=== PATIENT | male | born 1960 | race Native Hawaiian/Other Pacific Islander ===

== ENCOUNTER 2020-03-25 05:47 | Inpatient (IN) | payer BC, OTHER ==
[~2020-03-25] VITALS: Ht 182.9 cm; Wt 113.4 kg
[2020-03-25] MEDS ORDERED: InsuLIN REG 1unit/0.01ml Soln (100units/ml) ONE (05:55)
[2020-03-25] MEDS ORDERED: HEPARIN DRIP/D5W 100UNITS/ML 250 ML IV SCH (06:00)
[2020-03-25] MEDS ORDERED: ATORVASTATIN 20 MG TAB PO ONE (06:00)
[2020-03-25] MEDS ORDERED: ASPirin 81 mg TAB PO ONE (06:00)
[2020-03-25] MEDS ORDERED: InsuLIN REG 1unit/0.01ml Soln (100units/ml) IV ONE (06:00)
[2020-03-25] MEDS ORDERED: HEPARIN SODIUM (PORCINE) 5000 UNITS/ML 1ML VIAL IV ONE ×2 (06:00→06:15)
[2020-03-25 06:24] LABS: Hemoglobin 7.5 g/dL (13.5-17.5)
[2020-03-25 06:27] LABS: Hematocrit 22.1 % (41.0-53.0); Mean Corpuscular Hemoglobin 31.1 pg (28.0-32.0); Mean Corpuscular Hgb Conc. 34.1 g/dL (32.0-36.0); Mean Corpuscular Volume 91.3 fL (80.0-100.0); Platelet Count (auto) 421 10^3/uL (140-450); Red Blood Cells 2.42 10^6/uL (4.5-5.90); Red Cell Distribution Width 12.5 % (11.8-14.3); White Blood Cell 12.2 10^3/uL (4.4-10.8)
[2020-03-25 06:35] LABS: Basophils % (manual) 0 (0.0-2.0); Blast Cells 0; Eosinophils % (manual) 0 (0-7); Myelocytes % 0; Promyelocytes % 0; Reactive Lymphocytes 0
[2020-03-25 06:39] LABS: INR 1.12 (0.9-1.15); Partial Thromboplastin Time 25.3 sec (23.0-31.2)
[2020-03-25 06:57] LABS: Albumin 2.3 g/dL (3.4-5.0); Calcium 8.4 mg/dL (8.5-10.1); Potassium 5.4 mmol/L (3.5-5.1)
[2020-03-25] MEDS ORDERED: MORPHINE SULF INJ 2 MG/ML SYRINGE 1ML IV PRN (07:00)
[2020-03-25] MEDS ORDERED: ONDANSETRON HCL 4 MG/2 ML VIAL IV PRN (07:00)
[2020-03-25] MEDS ORDERED: NITROGLYCERIN 0.4 MG SL TAB SL PRN (07:00)
[2020-03-25 07:06] LABS: BUN/Creatinine Ratio 31.1; Bilirubin, Total 0.7 mg/dL (0.2-1.0); Total Protein 6.5 g/dL (6.4-8.2)
[2020-03-25] MEDS ORDERED: SODIUM ZIRCONIUM CYCL 10 GM PAK PO ONE (07:15)
[2020-03-25] MEDS ORDERED: DEXTROSE (50%) 50ML SYRG IV PRN (07:15)
[2020-03-25 07:38] LABS: Band Neutrophils % (manual) 1; Lymphocytes % (manual) 13 (10.0-50.0); Metamyelocytes % 1; Monocytes % (manual) 4 (0-12)
[2020-03-25 07:55] LABS: Lactic Acid w/Reflex 3.4 mmol/L (0.4-2.0)
[2020-03-25 08:54] LABS: Urine Amorphous Crystal FEW /hpf (None Seen); Urine Bacteria NONE SEEN /hpf (None Seen); Urine Blood TRACE /uL (Negative); Urine WBC 1 /hpf (0 - 3)
[2020-03-25 09:30] VITALS: BP 111/89
[2020-03-25] MEDS ORDERED: ASPirin 81 mg TAB PO SCH (10:00)
[2020-03-25] MEDS ORDERED: InsuLIN REG 1unit/0.01ml Soln (100units/ml) SC SCH (12:00)
[2020-03-25] MEDS ORDERED: ACCU-CHEK COMFORT CURVE STRIP VI SCH (12:00)
[2020-03-25] MEDS ORDERED: ATORVASTATIN 20 MG TAB PO SCH (22:00)
== END 2020-03-25 10:07 | disposition left against medical advice (07) | DRG 177 ==
LOC: ER 05:47 → EDBD 05:47 → TELE 05:48
PROVIDERS: ADMIT Nurse Practitioner; ATTEND Internal Medicine
DX: U07.1 COVID-19 (principal); I21.3 ST elevation (STEMI) myocardial infarction of unspecified site; J12.89 Other viral pneumonia; G93.41 Metabolic encephalopathy; J45.909 Unspecified asthma, uncomplicated; I12.9 Hypertensive chronic kidney disease with stage 1 through stage 4 chronic kidney disease, or unspecified chronic kidney disease; E11.22 Type 2 diabetes mellitus with diabetic chronic kidney disease; E11.65 Type 2 diabetes mellitus with hyperglycemia; E66.9 Obesity, unspecified; E78.5 Hyperlipidemia, unspecified; E87.5 Hyperkalemia; F17.200 Nicotine dependence, unspecified, uncomplicated; N18.30 Chronic kidney disease, stage 3 unspecified; Z79.4 Long term (current) use of insulin
CPT/HCPCS: 36415; 36600; 70450; 71045; 80053; 81001; 82010; 82728; 82805; 82962; 83605; 83880; 84484; 85007; 85027; 85610; 85730; 86141; 86850; 86900; 86901; 93005; 96374; 96375; G0378; J1815

== ENCOUNTER 2020-04-02 11:55 | Inpatient (IN) | payer BC ==
[~2020-04-02] VITALS: Ht 182.9 cm; Wt 109.3 kg
[2020-04-02 12:45] LABS: Basophils # (auto) 0 10 ^3/uL (0-0.2); Eosinophils % (auto) 0.4 % (0.0-7.0); Lymphocytes # (auto) 0.7 10 ^3/uL (0.4-5.4); Neutrophils # (auto) 10.3 10 ^3/uL (1.6-8.6)
[2020-04-02 12:47] LABS: Basophils % (auto) 0.4 % (0.0-2.0); Eosinophils # (auto) 0.1 10 ^3/uL (0-0.8); Hematocrit 21.6 % (41.0-53.0); Lymphocytes % (auto) 5.5 % (10.0-50.0); Mean Corpuscular Hgb Conc. 32.2 g/dL (32.0-36.0); Mean Corpuscular Volume 96.3 fL (80.0-100.0); Monocytes # (auto) 0.9 10 ^3/uL (0-1.3); Monocytes % (auto) 7.6 % (0.0-12.0); Neutrophils % (auto) 86.1 % (37.0-80.0); Nucleated Red Blood Cells % 0.3 %; Platelet Count (auto) 304 10^3/uL (140-450); Red Blood Cells 2.24 10^6/uL (4.5-5.90); Red Cell Distribution Width 17.7 % (11.8-14.3)
[2020-04-02 13:09] LABS: Albumin 2.2 g/dL (3.4-5.0); Calcium 8.2 mg/dL (8.5-10.1); Magnesium 2.7 mg/dL (1.6-2.6); Potassium 4.5 mmol/L (3.5-5.1)
[2020-04-02 13:15] LABS: BUN/Creatinine Ratio 22.1; Total Protein 6.8 g/dL (6.4-8.2)
[2020-04-02] MEDS ORDERED: INSULIN LANTUS (GLARGINE) 1 /0.01ml (100units/ml) SC ONE (13:15)
[2020-04-02] MEDS ORDERED: InsuLIN R (HUMAN) 100 UNITS in SODIUM CHL 0.9% 99 ML IV SCH (13:15)
[2020-04-02] MEDS ORDERED: cefTRIAXone 1GM/50ML D5W 50 ML IV ONE (13:15)
[2020-04-02] MEDS ORDERED: AZITHROMYCIN 500MG/ 250ML 250 ML IV ONE (13:15)
[2020-04-02] MEDS ORDERED: DEXTROSE (50%) 50ML SYRG IV PRN ×2 (13:15→14:15)
[2020-04-02] MEDS ORDERED: ACCU-CHEK COMFORT CURVE STRIP VI SCH (13:30)
[2020-04-02] MEDS ORDERED: ALBUTEROL SULF HFA 90MCG INH 200DOSE IN SCH (14:00)
[2020-04-02] MEDS ORDERED: NITROGLYCERIN 0.4 MG SL TAB SL PRN (14:00)
[2020-04-02] MEDS ORDERED: ONDANSETRON HCL 4 MG/2 ML VIAL IV PRN (14:00)
[2020-04-02] MEDS ORDERED: MORPHINE SULF INJ 2 MG/ML SYRINGE 1ML IV PRN ×2 (14:00)
[2020-04-02] MEDS ORDERED: HYDROcodone-ACET 5/325MG TAB PO PRN (14:00)
[2020-04-02] MEDS ORDERED: ACETAMINOPHEN 500 MG TAB PO PRN ×2 (14:00)
[2020-04-02 14:27] LABS: Phosphorus 4.2 mg/dL (2.5-4.90); Uric Acid 7.8 mg/dL (3.5-7.2)
[2020-04-02] MEDS: DOXYCYCLINE 100MG/250ML 250 ML IV SCH (14:40)
[2020-04-02 15:55] LABS: % Iron Saturation 5.6 % (20-55)
[2020-04-02] MEDS ORDERED: GLIP10TA9 PO (16:43)
[2020-04-02] MEDS ORDERED: METF-371 PO (16:43)
[2020-04-02] MEDS ORDERED: SIMV-8 PO (16:43)
[2020-04-02] MEDS ORDERED: ALBUAER3 IN (16:43)
[2020-04-02] MEDS ORDERED: ASPI1CHW5 PO (16:43)
[2020-04-02] MEDS ORDERED: LISI-646 PO (16:43)
[2020-04-02] MEDS ORDERED: INSUINJ37 SC (16:43)
[2020-04-02 17:58] VITALS: BP 92/57
[2020-04-02] MEDS: ACCU-CHEK COMFORT CURVE STRIP VI SCH ×2 (18:00→23:40)
[2020-04-02] MEDS: InsuLIN REG 1unit/0.01ml Soln (100units/ml) SC SCH ×2 (18:05→22:00)
[2020-04-02 18:15] VITALS: BP 101/59
[2020-04-02 18:51] VITALS: BP 88/63
[2020-04-02 21:15] VITALS: BP 104/64
[2020-04-02] MEDS: BUDESONIDE (INHALATION) 0.5 MG/2 ML NEB NEB SCH (23:04)
[2020-04-02] MEDS: ENOXAPARIN SOD 100 MG/1 ML SYRINGE SC SCH (23:40)
[2020-04-03] VITALS (7 sets, daily range): BP systolic 103–117; BP diastolic 58–69
[2020-04-03] MEDS: DOXYCYCLINE 100MG/250ML 250 ML IV SCH ×2 (02:28→15:30)
[2020-04-03 03:12] LABS: Calcium 7.9 mg/dL (8.5-10.1); Potassium 4.8 mmol/L (3.5-5.1)
[2020-04-03] MEDS: ACCU-CHEK COMFORT CURVE STRIP VI SCH ×4 (05:32→20:49)
[2020-04-03] MEDS: InsuLIN REG 1unit/0.01ml Soln (100units/ml) SC SCH ×4 (05:34→21:06)
[2020-04-03 07:10] LABS: Basophils # (auto) 0 10 ^3/uL (0-0.2); Eosinophils # (auto) 0.1 10 ^3/uL (0-0.8); Hemoglobin 7.5 g/dL (13.5-17.5); Lymphocytes # (auto) 0.6 10 ^3/uL (0.4-5.4); Neutrophils # (auto) 7.9 10 ^3/uL (1.6-8.6); White Blood Cell 9.7 10^3/uL (4.4-10.8)
[2020-04-03] MEDS: BUDESONIDE (INHALATION) 0.5 MG/2 ML NEB NEB SCH ×2 (07:15→18:35)
[2020-04-03] MEDS: ALBUTEROL SULF 2.5 MG/0.5ML(0.5%) NEB SOLN NEB SCH ×3 (07:15→18:35)
[2020-04-03 07:16] LABS: Basophils % (auto) 0.4 % (0.0-2.0); Eosinophils % (auto) 1.3 % (0.0-7.0); Hematocrit 22.1 % (41.0-53.0); Lymphocytes % (auto) 6.1 % (10.0-50.0); Mean Corpuscular Hemoglobin 32.3 pg (28.0-32.0); Mean Corpuscular Hgb Conc. 33.9 g/dL (32.0-36.0); Mean Corpuscular Volume 95.4 fL (80.0-100.0); Monocytes % (auto) 10.6 % (0.0-12.0); Neutrophils % (auto) 81.6 % (37.0-80.0); Nucleated Red Blood Cells % 0.3 %; Platelet Count (auto) 270 10^3/uL (140-450); Red Blood Cells 2.32 10^6/uL (4.5-5.90); Red Cell Distribution Width 15.9 % (11.8-14.3)
[2020-04-03 07:25] LABS: INR 1.08 (0.9-1.15); Partial Thromboplastin Time 45.3 sec (23.0-31.2)
[2020-04-03 07:28] LABS: Albumin 2.1 g/dL (3.4-5.0); Calcium 7.9 mg/dL (8.5-10.1); Potassium 4.7 mmol/L (3.5-5.1)
[2020-04-03 07:32] LABS: BUN/Creatinine Ratio 22.7; Bilirubin, Total 1.1 mg/dL (0.2-1.0); Total Protein 6.4 g/dL (6.4-8.2)
[2020-04-03] MEDS: ASCORBIC ACID 1,000 MG TAB PO SCH (08:30)
[2020-04-03] MEDS: CHOLECALCIFEROL (VITD3) 2,000 UNIT CAP PO SCH (08:31)
[2020-04-03] MEDS: ZINC SULFATE 220mg CAP or TAB PO SCH (08:31)
[2020-04-03] MEDS: DexAMETHasone SOD PHOS 10MG/1ML VIAL INJ IV SCH (08:32)
[2020-04-03] MEDS: ENOXAPARIN SOD 100 MG/1 ML SYRINGE SC SCH ×2 (09:39→20:46)
[2020-04-03] MEDS: FAMOTIDINE 20 MG TAB PO SCH (09:39)
[2020-04-03] MEDS: ASPirin 81 mg TAB PO SCH (09:40)
[2020-04-03] MEDS ORDERED: INSULIN LANTUS (GLARGINE) 1 /0.01ml (100units/ml) SC SCH (10:00)
--- NOTE | 2020-04-03 11:21 | NUR ---
Received call from MD Freedman Per repeat In-House COVID test required d/t possible false-negative, patient is to be moved to isolation with COVID-[address] until R/O. Director, Meri villagran aware. Will proceed to carry out orders.
--- NOTE | 2020-04-03 12:00 | NUR ---
Respiratory note: UNABLE TO GIVE PT MEDNEB TX DUE TO PT BEING AT PROCEDURE. RN AWARE. WILL CONTINUE TO MONITOR PT UPON RETURN.
--- NOTE | 2020-04-03 12:01 | NUR ---
Tel order obtained from Dr Cummins for GINGER downgrade
--- NOTE | 2020-04-03 13:05 | NUR ---
pt's daughter called by phone updated on pt's status
--- NOTE | 2020-04-03 13:11 | NUR ---
phone report given to primary GINGER RN
[2020-04-03] MEDS ORDERED: DOPamine 1600MCG/ML D5W 250 ML IV SCH (13:45)
[2020-04-03] MEDS ORDERED: DOPamine 1600MCG/ML D5W 250 ML IV ONE (13:57)
--- NOTE | 2020-04-03 14:45 | NUR ---
Admit to GING[facility] NONU,[facility] admitted to GINGER via gurney on conservation engineer, and portable 02 from cathlab. Patient transfered to bed, connected to unit monitoring and oxygen, and weighed by bedscale. Patient oriented to GUILHERME HANKINS, primary RN, unit, room, bed, and unit policies regarding patient care and visiting hours. All questions and concerns addressed, patient verbalized understanding. Vitals as follows: 106, 118/63, 18, 100% on 2L NC. MRSA swab to be sent to lab.
[2020-04-03] MEDS ORDERED: FUROSEMIDE 20 MG/2 ML VIAL IV ONE (16:15)
--- NOTE | 2020-04-03 16:59 | NUR ---
COVID/ Second PCR negative. Placed paged to Dr Freedman to inform and to see if we can take patient off isolation.
[2020-04-03] MEDS: PIPERACILLIN-TAZOB 3.375GM 100 ML IV SCH ×2 (18:35→23:28)
--- NOTE | 2020-04-03 18:58 | NUR ---
1800 SCHEDULED ALBUTEROL WAS HELD DUE TO HR OF127. NO RESPIRATORY DISTRESS NOTED. Addendum: 04/03/20 at 1859 by ASHLEY GAMBINO RT Amended: Links added.
--- NOTE | 2020-04-03 19:26 | NUR ---
END OF SHIFT Report given to NOC RNMonica. Endorsed care of patient.
[2020-04-03] MEDS: CARVEDILOL 3.125 MG TAB PO SCH (20:46)
[2020-04-03] MEDS: ATORVASTATIN 20 MG TAB PO SCH (20:46)
[2020-04-04] VITALS: BP 94/55
[2020-04-04] MEDS: ALBUTEROL SULF 2.5 MG/0.5ML(0.5%) NEB SOLN NEB SCH ×3 (00:43→13:15)
[2020-04-04 03:46] LABS: Basophils # (auto) 0 10 ^3/uL (0-0.2); Basophils % (auto) 0.1 % (0.0-2.0); Eosinophils # (auto) 0 10 ^3/uL (0-0.8); Eosinophils % (auto) 0.1 % (0.0-7.0); Hematocrit 22.9 % (41.0-53.0); Hemoglobin 7.4 g/dL (13.5-17.5); Lymphocytes # (auto) 0.3 10 ^3/uL (0.4-5.4); Lymphocytes % (auto) 3.7 % (10.0-50.0); Mean Corpuscular Hemoglobin 33.5 pg (28.0-32.0); Mean Corpuscular Hgb Conc. 32.4 g/dL (32.0-36.0); Mean Corpuscular Volume 103.5 fL (80.0-100.0); Monocytes # (auto) 0.2 10 ^3/uL (0-1.3); Monocytes % (auto) 2.9 % (0.0-12.0); Neutrophils # (auto) 6.7 10 ^3/uL (1.6-8.6); Neutrophils % (auto) 93.2 % (37.0-80.0); Nucleated Red Blood Cells % 0.1 %; Platelet Count (auto) 308 10^3/uL (140-450); Red Blood Cells 2.21 10^6/uL (4.5-5.90); Red Cell Distribution Width 16.7 % (11.8-14.3); White Blood Cell 7.2 10^3/uL (4.4-10.8)
[2020-04-04 03:59] VITALS: BP 104/59
[2020-04-04 04:05] LABS: Potassium 5.1 mmol/L (3.5-5.1)
[2020-04-04 04:24] LABS: Albumin 2.1 g/dL (3.4-5.0); BUN/Creatinine Ratio 21.7; Bilirubin, Total 1.1 mg/dL (0.2-1.0); CRP High Sensitivity 11.3 mg/dL (< 0.3); Calcium 8.1 mg/dL (8.5-10.1); Magnesium 2.1 mg/dL (1.6-2.6); Total Protein 6.7 g/dL (6.4-8.2)
[2020-04-04] MEDS: PIPERACILLIN-TAZOB 3.375GM 100 ML IV SCH ×3 (05:03→17:45)
[2020-04-04] MEDS: ACCU-CHEK COMFORT CURVE STRIP VI SCH ×3 (05:39→21:43)
[2020-04-04] MEDS: InsuLIN REG 1unit/0.01ml Soln (100units/ml) SC SCH ×3 (05:54→22:22)
[2020-04-04] MEDS: BUDESONIDE (INHALATION) 0.5 MG/2 ML NEB NEB SCH (06:53)
[2020-04-04 08:30] VITALS: BP 97/56
--- NOTE | 2020-04-04 08:30 | NUR ---
VENT. CHANGES MADE, INCREASED RESP. RATE TO 22, AND INCREASED VT TO 350. PER DR. BORJAS'S T.O.
--- NOTE | 2020-04-04 08:42 | NUR ---
PAGED DR DELGADO NEED TO UPDATE ON MOST RECENT IN HOUSE COVID RESULTS AND DISCUSS ISOLATION STATUS. STAYING MACHINE OPERATOR IS PENDING ISOLATION STATUS
--- NOTE | 2020-04-04 08:49 | NUR ---
PATIENTS DAUGHTER CALLED FOR UPDATE PROVIDED PASSWORD. UPDATED ON CURRENT PLAN OF CARE AND ADDRESSED HER CONCERNS
[2020-04-04] MEDS: ASPirin 81 mg TAB PO SCH (09:57)
[2020-04-04] MEDS: CARVEDILOL 3.125 MG TAB PO SCH (09:57)
[2020-04-04] MEDS: FAMOTIDINE 20 MG TAB PO SCH (09:58)
[2020-04-04] MEDS: DexAMETHasone SOD PHOS 10MG/1ML VIAL INJ IV SCH (10:00)
[2020-04-04] MEDS: CHOLECALCIFEROL (VITD3) 2,000 UNIT CAP PO SCH (10:00)
[2020-04-04] MEDS: ZINC SULFATE 220mg CAP or TAB PO SCH (10:00)
[2020-04-04] MEDS: ASCORBIC ACID 1,000 MG TAB PO SCH (10:00)
[2020-04-04] MEDS: ENOXAPARIN SOD 100 MG/1 ML SYRINGE SC SCH ×2 (10:00→22:21)
--- NOTE | 2020-04-04 10:39 | NUR ---
DR DELGADO AT BEDSIDE DISCUSSED PATIENTS STATUS AND COVID TESTING RESULTS. WANTS A 3RD IN-HOUSE TEST SENT
--- NOTE | 2020-04-04 11:20 | NUR ---
SPOKE WITH ALIYAH GORDON, UPDATED ON CURRENT STATUS AND DR RODGERS RECOMMENDATIONS ANGIOGRAM POSTPONED UNTIL TOMORROW (04/05/20)WITH DR GUERRERO, PENDING 3RD IN-HOUSE TEST
--- NOTE | 2020-04-04 11:50 | NUR ---
DR DANIELLE AT BEDSIDE DISCUSSED PLAN OF CARE WITH PATIENT
[2020-04-04 12:15] VITALS: BP 108/68
[2020-04-04] MEDS ORDERED: DEXTROSE (50%) 50ML SYRG IV PRN (12:45)
[2020-04-04] MEDS ORDERED: FUROSEMIDE 20 MG/2 ML VIAL IV ONE (12:45)
--- NOTE | 2020-04-04 13:09 | NUR ---
IN HOUSE COVID SWAB WALKED TO LAB BY SPD MANAGER
--- NOTE | 2020-04-04 15:12 | NUR ---
NEW BED ASSIGNMENT GIVEN 208, REPORT GIVEN TO DIAMOND PATIENT TO BE TRANSPORTED VIA WHEELCHAIR UPON RECEIVING TELEMETRY BOX
--- NOTE | 2020-04-04 16:00 | NUR ---
Received a patient from GINGER, patient awake, alert and oriented x 4 and verbally responsive. No respiratory distress noted. Skin is warm and dry to touch. Denied any pain at this time. Placed a call light within reach, will continue to monitor.
--- NOTE | 2020-04-04 16:02 | NUR ---
PATIENT TRANSPORTED TO NEW ROOM VIA WHEELCHAIR, CONNECTED TO PORTABLE TELE BOX. TRANSPORTED WITH ALL BELONGINGS. PATIENT TRANSFER TO NEW BED WITH MINIMAL ASSIST. RECEIVING RN AT BEDSIDE. VITALS STABLE AT TIME OF TRANSPORT
--- NOTE | 2020-04-04 16:15 | NUR ---
Received a call from Microbiology regarding patient has covid positive, MELISSA Marino and antoine Panda notified.
--- NOTE | 2020-04-04 16:35 | NUR ---
RECEIVED CALL FROM PATIENTS AND DAUGHTER PROVIDED PASSWORD. FAMILY IS UPSET REGARDING PATIENTS CARE. STATES THEY FEEL THEY ARE "GETTING RUN AROUND" REGARDING PATIENT GETTING ANGIOGRAM. THEY QUESTION HOW PATIENT COULD BE COVID TEST NEGATIVE MULTIPLE TIMES AND NOW BE INFORMED PATIENT IS TESTING POSITIVE. THEY WOULD LIKE TO SPEAK TO MD CARING FOR PATIENT. BEST PHONE NUMBER TO REACH THEM [phone], PAGED DR DELGADO TO NOTIFY
--- NOTE | 2020-04-04 16:41 | NUR ---
Report given to Kit CROWE.
[2020-04-04 16:49] VITALS: BP 81/54
--- NOTE | 2020-04-04 19:03 | NUR ---
nebulized medication put on hold at this time due to pt's positive covid test.
--- NOTE | 2020-04-04 19:30 | NUR ---
Opening Shift Note Assumed care of patient, awake and alert. No S/S of distress/SOB or pain. Instructed on POC and to call for assist PRN, will continue to monitor for changes Q1hr and PRN.
[2020-04-04 22:00] VITALS: BP 91/62
[2020-04-04] MEDS: ATORVASTATIN 20 MG TAB PO SCH (22:20)
[2020-04-04] MEDS: INSULIN LANTUS (GLARGINE) 1 /0.01ml (100units/ml) SC SCH (22:21)
[2020-04-05] VITALS (15 sets, daily range): BP systolic 85–107; BP diastolic 49–68
[2020-04-05] MEDS: PIPERACILLIN-TAZOB 3.375GM 100 ML IV SCH ×2 (00:40→05:51)
[2020-04-05] MEDS: CARVEDILOL 3.125 MG TAB PO SCH ×2 (00:40→08:53)
--- NOTE | 2020-04-05 05:18 | NUR ---
Pt BP was 85/52 in the AM. Elevated lower extremities and will recheck BP shortly. Pt is asymptomatic. HR is 92 and O2 sat at 95%.
--- NOTE | 2020-04-05 05:52 | NUR ---
Upon recheck BP was 90/52. Will continue to monitor.
[2020-04-05] MEDS: ACCU-CHEK COMFORT CURVE STRIP VI SCH ×4 (06:14→22:28)
[2020-04-05] MEDS: InsuLIN REG 1unit/0.01ml Soln (100units/ml) SC SCH ×4 (06:22→22:33)
[2020-04-05 06:33] LABS: Eosinophils # (auto) 0.1 10 ^3/uL (0-0.8); Lymphocytes # (auto) 0.9 10 ^3/uL (0.4-5.4)
[2020-04-05 06:35] LABS: Basophils # (auto) 0.1 10 ^3/uL (0-0.2); Basophils % (auto) 0.6 % (0.0-2.0); Eosinophils % (auto) 1.2 % (0.0-7.0); Hematocrit 18.8 % (41.0-53.0); Lymphocytes % (auto) 10.4 % (10.0-50.0); Mean Corpuscular Hemoglobin 32.1 pg (28.0-32.0); Mean Corpuscular Hgb Conc. 32.8 g/dL (32.0-36.0); Mean Corpuscular Volume 97.7 fL (80.0-100.0); Monocytes % (auto) 12.5 % (0.0-12.0); Neutrophils # (auto) 6.2 10 ^3/uL (1.6-8.6); Neutrophils % (auto) 75.3 % (37.0-80.0); Nucleated Red Blood Cells % 0.3 %; Platelet Count (auto) 358 10^3/uL (140-450); Red Blood Cells 1.93 10^6/uL (4.5-5.90); Red Cell Distribution Width 15.6 % (11.8-14.3); White Blood Cell 8.3 10^3/uL (4.4-10.8)
[2020-04-05 06:46] LABS: Hemoglobin 6.2 g/dL (13.5-17.5)
--- NOTE | 2020-04-05 06:47 | NUR ---
Received call from lab for critical Hgb 6.2. Will page hospitalist.
--- NOTE | 2020-04-05 06:49 | NUR ---
Received call back from hospitalist, Dru LY. Received new orders for 2 units PRBC's.
[2020-04-05 06:50] LABS: Albumin 1.9 g/dL (3.4-5.0); Calcium 7.8 mg/dL (8.5-10.1); Potassium 4.6 mmol/L (3.5-5.1)
[2020-04-05 06:58] LABS: BUN/Creatinine Ratio 34.5; Bilirubin, Total 0.7 mg/dL (0.2-1.0); Total Protein 6.3 g/dL (6.4-8.2)
[2020-04-05 08:50] LABS: INR 1.12 (0.9-1.15)
[2020-04-05] MEDS: ASCORBIC ACID 1,000 MG TAB PO SCH (08:51)
[2020-04-05] MEDS: ZINC SULFATE 220mg CAP or TAB PO SCH (08:51)
[2020-04-05] MEDS: ASPirin 81 mg TAB PO SCH (08:51)
[2020-04-05] MEDS: FAMOTIDINE 20 MG TAB PO SCH (08:52)
[2020-04-05] MEDS: DexAMETHasone SOD PHOS 10MG/1ML VIAL INJ IV SCH (08:52)
[2020-04-05] MEDS: CHOLECALCIFEROL (VITD3) 2,000 UNIT CAP PO SCH (08:52)
[2020-04-05] MEDS: ENOXAPARIN SOD 100 MG/1 ML SYRINGE SC SCH ×2 (08:53→22:28)
--- NOTE | 2020-04-05 09:28 | NUR ---
VITAL SIGNS BP 74/40 RECHECK 77/42 HR 122 TEMP 97.8 SPO2 95 WITH 5L/MIN NC PATIENT PUT INTO [place], OXYGEN ADMINISTERED, BP RECHECK 80/39. RN WILL CONTACT
--- NOTE | 2020-04-05 09:32 | NUR ---
CORPORATE RELATIONS DIRECTOR MADE AWARE OF SITUATION
--- NOTE | 2020-04-05 09:38 | NUR ---
WALDEMAR DELGADO RE: BP 74/41 WITH RECHECK 77/42 COLD EXTREMETIES, ALERT AND ORIENTED WITH GARBLED SPEECH. AWAITING CALL BACK
--- NOTE | 2020-04-05 09:40 | NUR ---
MD RETURNED PAGE PER MD PATIENT WILL CONTINUE PRBCS AND IF BLOOD PRESSURE CONTINUES TO TREND DOWN PATIENT WILL BE TRANSFERED TO GINGER
--- NOTE | 2020-04-05 10:58 | NUR ---
PAGED MD DELGADO RE: PATIENT FAMILY UPSET AND STATES "HE IS JUST GETTING MORE AND MORE SICK, I REALLY NEED TO TALK TO THE DOCTOR PHILLIP" MD AWARE AND STATES SHE "WILL CALL THEM LATER TODAY"
--- NOTE | 2020-04-05 13:15 | NUR ---
Nutrition Assessment Est energy needs 1889-2154 kcal (14-18 kcal/kg BW 108.4kg) est protein needs 81-97g (1-1.2g/kg IBW 81kg) WIll reassess prn. Addendum: 04/05/20 at [address] Amended: Links added.
[2020-04-05] MEDS ORDERED: FUROSEMIDE 20 MG/2 ML VIAL IV ONE (13:45)
--- NOTE | 2020-04-05 14:29 | NUR ---
CHARTING ERROR AT 0830 ON 04/04/2020, WRONG PT.
--- NOTE | 2020-04-05 15:00 | NUR ---
Midline Placement: Patient educated on need for midline placement. All risks and benefits explained and all questions and concerns addresses prior to procedure. 18g/10cm midline inserted via left brachial vein using Ultrasound. Sterile technique utilized. Blood return obtained from the single lumen and flushed easily with NS using proper technique. Midline secured with saline lock; biodisc and occlusive dressing applied. Primary RN Shelby notified. Midline lot # [id number]
[2020-04-05] MEDS ORDERED: LIDOCAINE 2%HCL (LOCAL ANESTH.) INJ 20ML MDV ONE (15:41)
[2020-04-05] MEDS ORDERED: IODIXANOL 320MG/ML 100ML BTL IV ONE (15:41)
[2020-04-05] MEDS ORDERED: ANGIOMAX 250 MG VIAL IV ONE (15:52)
[2020-04-05] MEDS ORDERED: HEPARIN SODIUM (PORCINE) 5000 UNITS/ML 1ML VIAL ONE (15:52)
[2020-04-05] MEDS ORDERED: fentaNYL CITRATE 100 MCG/2 ML VL ONE (15:53)
[2020-04-05] MEDS ORDERED: VERAPAMIL 2.5MG/ML INJ 2ML VIAL IV ONE (15:53)
[2020-04-05] MEDS ORDERED: MIDAZOLAM HCL 1MG/1ML-2 ML VIAL ONE (15:53)
[2020-04-05] MEDS ORDERED: SODIUM CHL 0.9% 50 ML ONE (15:53)
--- NOTE | 2020-04-05 15:55 | NUR ---
Assessment Patient is a 60-year-old male, who is alert and oriented. Patient cognitive abilities are intact. Patient states that his daughter (Sandra) assist him with all ADLs and he walks with a wheelchair. Patient stated that he lives with his daughter. Patient stated that he is unemployed and receives financial support from his daughter. Patient stated that he is receptive to receives Advance Directives forms. Discharge planning: SW will have a physical therapy evaluation for home PT. SW will continue to monitor for any other post discharge needs. Addendum: 04/05/20 at 1556 by KATHI QUEZADA Amended: Links added.
--- NOTE | 2020-04-05 16:42 | NUR ---
PT BROUGHT DOWN TO CUFF RUNNER BY CUFF RUNNER PERSONCATRINA
[2020-04-05] MEDS ORDERED: REMDESIVIR 200 MG in NS 210ml LOADING DOSE ADULT IV ONE (17:00)
--- NOTE | 2020-04-05 17:48 | NUR ---
PT BROUGHT BACK TO UNIT Report received from . ERIILA brought to bed 247B following LEFT Cardiac catheterization, on bus monitor and portable oxygen. Patient transfered to unit bed, connected to school bus monitor and oxygen. Catheterization site assessed for any bleeding, redness or swelling. VASC-BAND device in place. Pedal pulses on affected leg assessed for positive tissue perfusion. Patient instructed on need to notify staff immediately if any pain, burning or wetness to site, and any lower back pain. Patient educated on new cardiac medications. All questions and concerns addressed, patient verbalized understanding of all education and instruction. See notes for any further.
[2020-04-05] MEDS: PIPERACILLIN-TAZOB 2.25GM 50 ML IV SCH (18:00)
--- NOTE | 2020-04-05 18:22 | NUR ---
REMOVED 2ML FROM VASC BAND
[2020-04-05] MEDS ORDERED: SODIUM CHLORIDE 0.9% 1,000 ML IV ONE (18:45)
--- NOTE | 2020-04-05 18:52 | NUR ---
REMOVED 2ML FROM VASC BAND SITE ASSESSED. NO COMPLICATION AT THIS TIME.
--- NOTE | 2020-04-05 19:38 | NUR ---
CALL PLACED TO BLOOD BANK PER BLOOD BANK PATIENT HAS ALREADY RECEIVED 1 UNIT OF CONVALESCENT PLASMA. SECOND DOSE WILL NOW BE CANCELLED
--- NOTE | 2020-04-05 19:38 | NUR ---
CALL PLACED TO MD DELGADO RE: DOUBLE CONVALESCENT PLASMA ORDER PER "IF THE PATIENT ALREADY RECEIVED THE PLASMA THAN HE DOES NOT NEED A SECOND DOSE. JUST CALL BLOOD BANK TO VERIFY" Addendum: 04/05/20 at 1940 by ADI SELF RN RN INCORRECT TIME. CORRECT TIME 2678
[2020-04-05] MEDS: ATORVASTATIN 20 MG TAB PO SCH (22:29)
[2020-04-05] MEDS: INSULIN LANTUS (GLARGINE) 1 /0.01ml (100units/ml) SC SCH (22:33)
[2020-04-05] MEDS: BUDESONIDE (INHALATION) 180 MCG IH IN SCH (22:55)
[2020-04-05] MEDS: ALBUTEROL SULF HFA 90MCG INH 200DOSE IN SCH (22:55)
[2020-04-05 23:55] LABS: Hemoglobin 7.5 g/dL (13.5-17.5)
[2020-04-05 23:57] LABS: Hematocrit 22.9 % (41.0-53.0)
[2020-04-06] VITALS (7 sets, daily range): BP systolic 104–123; BP diastolic 65–77
--- NOTE | 2020-04-06 00:19 | NUR ---
REMDESIVIR POST V/S T97.6, HR97, O2 95%, RR20, BP102/65
[2020-04-06] MEDS: PIPERACILLIN-TAZOB 2.25GM 50 ML IV SCH ×5 (00:52→23:55)
--- NOTE | 2020-04-06 04:44 | NUR ---
Umana catheter insertion Patient educated on catheter and reason for insertion. All questions answered. Umana catheter 16 South African inserted with clean sterile technique. Patient tolerated well. Urine sample collected for UA. Sent to lab.
[2020-04-06 05:51] LABS: Urine Bacteria NONE SEEN /hpf (None Seen); Urine Blood Negative /uL (Negative); Urine WBC <1 /hpf (0 - 3)
[2020-04-06] MEDS: InsuLIN REG 1unit/0.01ml Soln (100units/ml) SC SCH ×4 (06:07→22:44)
[2020-04-06] MEDS: ACCU-CHEK COMFORT CURVE STRIP VI SCH ×4 (06:08→22:00)
[2020-04-06 06:50] LABS: Basophils # (auto) 0 10 ^3/uL (0-0.2); Eosinophils # (auto) 0 10 ^3/uL (0-0.8); Lymphocytes # (auto) 0.9 10 ^3/uL (0.4-5.4); Nucleated Red Blood Cells % 0.2 %
[2020-04-06 06:52] LABS: Basophils % (auto) 0.4 % (0.0-2.0); Eosinophils % (auto) 0.3 % (0.0-7.0); Hematocrit 20.1 % (41.0-53.0); Lymphocytes % (auto) 11.8 % (10.0-50.0); Mean Corpuscular Hemoglobin 30.1 pg (28.0-32.0); Mean Corpuscular Hgb Conc. 33.5 g/dL (32.0-36.0); Mean Corpuscular Volume 89.9 fL (80.0-100.0); Neutrophils % (auto) 74.5 % (37.0-80.0); Platelet Count (auto) 349 10^3/uL (140-450); Red Blood Cells 2.24 10^6/uL (4.5-5.90)
[2020-04-06 07:03] LABS: Hemoglobin 6.7 g/dL (13.5-17.5)
[2020-04-06 07:22] LABS: Calcium 8.2 mg/dL (8.5-10.1); Potassium 4.9 mmol/L (3.5-5.1)
[2020-04-06 07:26] LABS: Albumin 1.9 g/dL (3.4-5.0); BUN/Creatinine Ratio 36.8; Magnesium 2.3 mg/dL (1.6-2.6)
[2020-04-06] MEDS: ALBUTEROL SULF HFA 90MCG INH 200DOSE IN SCH ×3 (07:29→20:28)
[2020-04-06] MEDS: BUDESONIDE (INHALATION) 180 MCG IH IN SCH ×2 (07:29→20:25)
[2020-04-06 07:38] LABS: Bilirubin, Total 0.5 mg/dL (0.2-1.0); Total Protein 6.2 g/dL (6.4-8.2)
--- NOTE | 2020-04-06 09:08 | NUR ---
PATIENT AMBULATED TO BATHROOM WITH 2 PERSON ASSIST. PATIENT HAD LARGE BLACK TARRY BM. STOOL OCCULT SENT. PATIENT ASSISTED BACK TO BATHROOM. RESTING COMFORTABLY IN HIGH FOWLERS.
[2020-04-06] MEDS: ENOXAPARIN SOD 100 MG/1 ML SYRINGE SC SCH (10:00)
[2020-04-06] MEDS: ASPirin 81 mg TAB PO SCH (10:00)
--- NOTE | 2020-04-06 10:24 | NUR ---
WALDEMAR DANIELLE REGARDING BLACK TARRY STOOL.
[2020-04-06] MEDS: DexAMETHasone SOD PHOS 10MG/1ML VIAL INJ IV SCH (10:41)
[2020-04-06] MEDS: FAMOTIDINE 20 MG TAB PO SCH (10:41)
[2020-04-06] MEDS: ZINC SULFATE 220mg CAP or TAB PO SCH (10:41)
[2020-04-06] MEDS: ASCORBIC ACID 1,000 MG TAB PO SCH (10:42)
[2020-04-06] MEDS: CHOLECALCIFEROL (VITD3) 2,000 UNIT CAP PO SCH (10:42)
[2020-04-06] MEDS: SODIUM BICARBONATE 50ML VIAL 50 ML in SOD CHL 0.45% 1,000 ML IV SCH ×2 (10:45→22:23)
--- NOTE | 2020-04-06 11:09 | NUR ---
WALDEMAR THORPE REGARDING ORDERS FOR CRITICAL HGB. AWAITING CALL BACK.
--- NOTE | 2020-04-06 11:17 | NUR ---
SPOKE TO Pk THORPE REGARDING HGB. RECEIVED ORDER FOR ONE MORE UNIT OF PRBC.
--- NOTE | 2020-04-06 11:22 | NUR ---
Pk DANIELLE AT BEDSIDE. INFORMED OF PATIENT STATUS AND INFORMED OF BLACK TARRY STOOLS THIS AM.
[2020-04-06] MEDS: SUCRALFATE 1 GM/10 ML ORAL SUSP PO SCH ×3 (12:52→22:41)
[2020-04-06] MEDS: SODIUM FERR GLUC 62.5MG/5ML 125 MG in SODIUM CHL 0.9% 100 ML IV SCH (12:52)
[2020-04-06 14:41] LABS: Creatinine, Urine 78 mg/dL (30.0-125.0); Protein, Urine 32.6 mg/dL (0.0-11.9); Sodium Urine 24 mmol/L (40-220)
--- NOTE | 2020-04-06 19:30 | NUR ---
Opening Shift Note Received report from yoli Ignacio RN. Assumed care of patient, awake and alert. No S/S of distress/SOB or pain. Instructed on POC and to call for assist PRN, will continue to monitor for changes Q1hr and PRN. Bed placed in lowest position, bed alarm turned on and call light within reach.
[2020-04-06] MEDS: REMDESIVIR 100mg in NS 230ml DAILYx4DAYS (NO VENT) IV SCH (22:22)
--- NOTE | 2020-04-06 22:29 | NUR ---
Started Remdesivir infusion. Vitals are 98.3Temp, 100pulse, 20 respirations, 95% on room air, blood pressure is 110/77. Will monitor.
[2020-04-06] MEDS: PANTOPRAZOLE 40 MG/10 ML VIAL INJ IV SCH (22:40)
[2020-04-06] MEDS: ATORVASTATIN 20 MG TAB PO SCH (22:41)
[2020-04-06] MEDS: INSULIN LANTUS (GLARGINE) 1 /0.01ml (100units/ml) SC SCH (22:42)
--- NOTE | 2020-04-06 22:45 | NUR ---
15 minutes into remdesivir infusion vitals: Blood pressure 107/73, 93% on 2LNC, 18 respirations, 98.0 temp, and 95 pulse.
--- NOTE | 2020-04-06 23:40 | NUR ---
Remdesivir post infusion vitals are blood pressure 103/61, HR 96, 2LNC at 94%, respirations 18, temp 97.8. Patient is resting in bed with eyes closed, no distress noted and patient denies pain.
[2020-04-07] VITALS (7 sets, daily range): BP systolic 104–116; BP diastolic 49–72
[2020-04-07 05:48] LABS: Eosinophils # (auto) 0 10 ^3/uL (0-0.8); Eosinophils % (auto) 0.6 % (0.0-7.0); Monocytes # (auto) 0.9 10 ^3/uL (0-1.3); Neutrophils # (auto) 5.2 10 ^3/uL (1.6-8.6)
[2020-04-07 05:49] LABS: Basophils # (auto) 0.1 10 ^3/uL (0-0.2); Basophils % (auto) 0.7 % (0.0-2.0); Hematocrit 17.8 % (41.0-53.0); Lymphocytes % (auto) 13.7 % (10.0-50.0); Mean Corpuscular Hgb Conc. 34.1 g/dL (32.0-36.0); Mean Corpuscular Volume 90.8 fL (80.0-100.0); Monocytes % (auto) 12.5 % (0.0-12.0); Neutrophils % (auto) 72.5 % (37.0-80.0); Nucleated Red Blood Cells % 2.2 %; Platelet Count (auto) 291 10^3/uL (140-450); Red Blood Cells 1.96 10^6/uL (4.5-5.90); Red Cell Distribution Width 16.2 % (11.8-14.3); White Blood Cell 7.2 10^3/uL (4.4-10.8)
[2020-04-07 05:51] LABS: Hemoglobin 6.1 g/dL (13.5-17.5)
[2020-04-07] MEDS: PIPERACILLIN-TAZOB 2.25GM 50 ML IV SCH ×3 (06:03→18:00)
[2020-04-07] MEDS: ACCU-CHEK COMFORT CURVE STRIP VI SCH ×5 (06:04→22:07)
[2020-04-07 06:06] LABS: Albumin 1.8 g/dL (3.4-5.0); BUN/Creatinine Ratio 30.5; Calcium 7.9 mg/dL (8.5-10.1); Potassium 4.5 mmol/L (3.5-5.1)
[2020-04-07 06:09] LABS: Bilirubin, Total 0.5 mg/dL (0.2-1.0); Total Protein 5.5 g/dL (6.4-8.2)
--- NOTE | 2020-04-07 06:30 | NUR ---
Received report from Griselda Adams from lab that patient's Hemoglobin is 6.1. Will page hospitalist.
[2020-04-07] MEDS: SUCRALFATE 1 GM/10 ML ORAL SUSP PO SCH ×4 (06:33→22:07)
[2020-04-07] MEDS: InsuLIN REG 1unit/0.01ml Soln (100units/ml) SC SCH ×3 (06:34→17:34)
--- NOTE | 2020-04-07 06:53 | NUR ---
Hospitalist paged, awaiting call back.
--- NOTE | 2020-04-07 06:56 | NUR ---
Urine specimen sent to lab
--- NOTE | 2020-04-07 07:10 | NUR ---
Opening Shift Note Assumed care of patient, awake and alert. No S/S of distress/SOB or pain. Instructed on POC and to call for assist PRN, will continue to monitor for changes Q1hr and PRN. Bed placed in lowest position, bed alarm turned on and call light within reach.
[2020-04-07] MEDS: BUDESONIDE (INHALATION) 180 MCG IH IN SCH ×2 (07:26→22:26)
[2020-04-07] MEDS: ALBUTEROL SULF HFA 90MCG INH 200DOSE IN SCH ×3 (07:27→22:26)
--- NOTE | 2020-04-07 08:35 | NUR ---
MD called/ New orders Received call from Dr. Keller regarding status of patient. MD updated on patient condition and informed that patient's Hemoglobin was 6.1 this morning. New orders received at this time to transfuse 1 unit of PRBC. Order read back and verified. Will implement orders and initiate blood transfusion when blood is available.
--- NOTE | 2020-04-07 09:38 | NUR ---
Blood transfusion initiated Blood unit verified by this RN and SEBASTIEN Quinones. Transfusion initiated at this time. Baseline VS obtained. Will monitor for any adverse reactions and continue care.
[2020-04-07] MEDS: DexAMETHasone SOD PHOS 10MG/1ML VIAL INJ IV SCH (09:39)
[2020-04-07] MEDS: PANTOPRAZOLE 40 MG/10 ML VIAL INJ IV SCH ×2 (09:39→22:07)
[2020-04-07] MEDS: FAMOTIDINE 20 MG TAB PO SCH (09:44)
[2020-04-07] MEDS: ASCORBIC ACID 1,000 MG TAB PO SCH (09:44)
[2020-04-07] MEDS: CHOLECALCIFEROL (VITD3) 2,000 UNIT CAP PO SCH (09:44)
[2020-04-07] MEDS: ZINC SULFATE 220mg CAP or TAB PO SCH (09:44)
--- NOTE | 2020-04-07 12:50 | NUR ---
Blood transfusion terminated Patient tolerated transfusion well, no adverse effects noted or reported. Post transfusion VS obtained. Will continue to monitor.
[2020-04-07] MEDS: SODIUM FERR GLUC 62.5MG/5ML 125 MG in SODIUM CHL 0.9% 100 ML IV SCH (13:04)
--- NOTE | 2020-04-07 13:21 | NUR ---
at bedside Dr. Moseley at bedside updating patient on POC. No new orders received at this time.
[2020-04-07] MEDS: REMDESIVIR 100mg in NS 230ml DAILYx4DAYS (NO VENT) IV SCH (17:20)
--- NOTE | 2020-04-07 18:30 | NUR ---
Remdesevir infusion ended. 1720- Remdesevir initiated at this time baseline VS- 97.9 temp, BP 105/60, HR 88, 95% O2 15 minute VS- 97.9 Temp, BP 110/55, HR 90, 95% O2. Patient tolerating well will continue to assess. Post infusion 1830 VS- 97.8, BP 112/60, 85HR, 95% O2, Patient is resting in bed with eyes closed, no distress noted and patient denies pain.
--- NOTE | 2020-04-07 19:47 | NUR ---
OPENING NOTE Received report from day shift RN. Patient is A&O X's 4 with no s/s of distress. Patient is on RA and O2 saturation at 95%. Educated patient on POC and to use call light when in need of any assistance. Patient verbalized understanding. Midline to left upper arm is patent and dressing intact. Bed is in lowest/locked position with side rails up X's 2 and call light is within reach of patient. Will continue care.
[2020-04-07] MEDS ORDERED: InsuLIN REG 1unit/0.01ml Soln (100units/ml) SC SCH (20:00)
--- NOTE | 2020-04-07 20:00 | NUR ---
BLOOD SUGAR BLOOD SUGAR AT 412. 15 UNITS REGULAR INSULIN GIVEN. MD WAS MADE AWARE ALREADY AND NOW WILL HAVE ACCU CHECK Q4HR. WILL REASSESS BLOOD SUGAR.
[2020-04-07] MEDS: INSULIN LANTUS (GLARGINE) 1 /0.01ml (100units/ml) SC SCH (22:07)
[2020-04-07] MEDS: ATORVASTATIN 20 MG TAB PO SCH (22:07)
[2020-04-07] MEDS ORDERED: DEXTROSE (50%) 50ML SYRG IV PRN (22:45)
[2020-04-08] VITALS (7 sets, daily range): BP systolic 113–144; BP diastolic 63–75
[2020-04-08] MEDS: PIPERACILLIN-TAZOB 2.25GM 50 ML IV SCH ×5 (00:05→23:55)
[2020-04-08] MEDS: ACCU-CHEK COMFORT CURVE STRIP VI SCH ×6 (00:05→20:01)
[2020-04-08] MEDS: InsuLIN REG 1unit/0.01ml Soln (100units/ml) SC SCH ×6 (00:18→19:53)
--- NOTE | 2020-04-08 05:00 | NUR ---
BM patient had one episode of incontinence. smear of dark black stool. Patient's linen was full changed. Patient cleansed well and provided new gown.
[2020-04-08] MEDS: SUCRALFATE 1 GM/10 ML ORAL SUSP PO SCH ×4 (06:16→21:22)
[2020-04-08 06:19] LABS: Basophils # (auto) 0 10 ^3/uL (0-0.2); Basophils % (auto) 0.4 % (0.0-2.0); Eosinophils # (auto) 0.2 10 ^3/uL (0-0.8); Eosinophils % (auto) 1.8 % (0.0-7.0); Hematocrit 21.4 % (41.0-53.0); Hemoglobin 7.1 g/dL (13.5-17.5); Lymphocytes # (auto) 1.2 10 ^3/uL (0.4-5.4); Lymphocytes % (auto) 13.4 % (10.0-50.0); Mean Corpuscular Hemoglobin 30.3 pg (28.0-32.0); Mean Corpuscular Hgb Conc. 33.1 g/dL (32.0-36.0); Mean Corpuscular Volume 91.7 fL (80.0-100.0); Monocytes % (auto) 11.2 % (0.0-12.0); Neutrophils # (auto) 6.7 10 ^3/uL (1.6-8.6); Neutrophils % (auto) 73.2 % (37.0-80.0); Nucleated Red Blood Cells % 2.6 %; Platelet Count (auto) 285 10^3/uL (140-450); Red Blood Cells 2.33 10^6/uL (4.5-5.90); Red Cell Distribution Width 15.8 % (11.8-14.3); White Blood Cell 9.1 10^3/uL (4.4-10.8)
[2020-04-08 06:25] LABS: Albumin 1.8 g/dL (3.4-5.0); Calcium 7.8 mg/dL (8.5-10.1); Potassium 4.1 mmol/L (3.5-5.1)
[2020-04-08 06:28] LABS: BUN/Creatinine Ratio 18.4; Bilirubin, Total 0.5 mg/dL (0.2-1.0); Total Protein 5.4 g/dL (6.4-8.2)
[2020-04-08] MEDS: ALBUTEROL SULF HFA 90MCG INH 200DOSE IN SCH ×3 (07:34→21:59)
[2020-04-08] MEDS: BUDESONIDE (INHALATION) 180 MCG IH IN SCH ×2 (07:35→21:59)
[2020-04-08] MEDS: FAMOTIDINE 20 MG TAB PO SCH (10:00)
[2020-04-08] MEDS: PANTOPRAZOLE 40 MG/10 ML VIAL INJ IV SCH ×2 (10:23→21:21)
[2020-04-08] MEDS: DexAMETHasone SOD PHOS 10MG/1ML VIAL INJ IV SCH (10:23)
[2020-04-08] MEDS: ASCORBIC ACID 1,000 MG TAB PO SCH (10:23)
[2020-04-08] MEDS: ZINC SULFATE 220mg CAP or TAB PO SCH (10:23)
[2020-04-08] MEDS: CHOLECALCIFEROL (VITD3) 2,000 UNIT CAP PO SCH (10:24)
[2020-04-08] MEDS: SODIUM FERR GLUC 62.5MG/5ML 125 MG in SODIUM CHL 0.9% 100 ML IV SCH (11:32)
--- NOTE | 2020-04-08 12:00 | NUR ---
Nutrition Followup Note Wt 110.3 KG Pt in covid isolation. pt with no distress noted currently on cardiac diet with adequte PO of 75% x 4 per RN doc Est energy needs 0300-4832 kcal (14-18 kcal/kg BW 108.4kg) est protein needs 81-97g (1-1.2g/kg IBW 81kg) WIll reassess prn. Labs: GLU 111 H CA 7.8 L ALB 1.8 L BM: Pt with 1 BM yesterday per Rn note Skin: BS 20 low risk,full details in senior care assistant note PES: Obesity aeb pt with a BMI of 32.4kg/m2 r/t caloric intake in excess of needs Comments: Will continue to monitor PO intake, skin status. F/u high 3-5 days Rec: 1) Consider CCHO 60 gm along with current diet as pt with hx of DM. 2) refer to CDE on DC. 3) continue current plan of care
[2020-04-08] MEDS ORDERED: FUROSEMIDE 20 MG/2 ML VIAL IV ONE (12:45)
--- NOTE | 2020-04-08 14:26 | NUR ---
Called [facility] [phone] and left a message for the MARCIAL Elaine regarding the transfer and also left a message for the coordinator Carmen [phone]. Faxed Face sheet, H&P and order for transfer [facility] to [phone]
--- NOTE | 2020-04-08 14:50 | NUR ---
Called [facility] at [phone] spoke with Joann coordinator who stated to fax face sheet, clinical packet to the facility at [phone], Stated that I have to Dr Freedman call the Hospitalist line and get an accepting doctor for the patient. Gave the number to call [phone],
--- NOTE | 2020-04-08 15:00 | NUR ---
Faxed clinical packet to [phone] requesting transfer to [facility], also gave Dr Freedman the number to call and get an accepting MD l
--- NOTE | 2020-04-08 15:10 | NUR ---
Received a call from Dr Feredman stating the accepting will be Dr. Betsy Villela.
--- NOTE | 2020-04-08 15:32 | NUR ---
Called [facility] [phone] and spoke with Ehsan stated they received the transfer packet and stated they will call us back., Gave the name of the accepting MD Dr.Kamel Villela.
--- NOTE | 2020-04-08 15:40 | NUR ---
Called [facility] spoke with Courtney coordinator [phone] stated she will call the CM Chele and leave him a text since I have not been able to talk with him, stated the patient may not be transferred today. Because she has been having trouble with her computer. Stated she will call back when she gets the authorization for the transportation and hospital and when [facility] gives her a bed. Express to her that if it is after 1630 to call the hospital and ask for the SW member of congress. Number given, Received a call form Daphne Dan at [facility] and gave a verbal update, stated she would call Chele CM she knows his well, regarding the authorization.
--- NOTE | 2020-04-08 15:40 | NUR ---
Transfer packet signed transfer packet signed at this time per request of Dr. Freedman via telephone call. Orders were read back and verified by this RN and second RN.
[2020-04-08] MEDS: REMDESIVIR 100mg in NS 230ml DAILYx4DAYS (NO VENT) IV SCH (17:10)
--- NOTE | 2020-04-08 19:40 | NUR ---
OPENING NOTE Received report from day shift RN. Patient is A&O X's 4 with no s/s of distress and reports no pain. Patient is sitting on chair at bedside. Educated patient on POC and to use call light when in need of assistance. Educated patient that he is pending a transfer to [facility], we are just waiting on authorization. Per patient, he does not want to be transferred to another hospital. Educated patient reason for need to continue treatment, but patient reports not wanting to go and wants to be discharged home if anything. Will inform day shift RN tomorrow if patient is not transferred tonight about situation. I also spoke to patient's after password was obtained and updated her on POC. She also reports that the patient does not want to be transferred to another hospital and she wishes to speak with the doctor before in regards to reason. Will continue care.
--- NOTE | 2020-04-08 20:01 | NUR ---
BLOOD GLUCOSE at 432. gave 15 units of regular insulin. will page hospitalist as protocol.
--- NOTE | 2020-04-08 20:30 | NUR ---
HOSPITALIST CALLED BACK HE WAS INFORMED OF CRITICAL BLOOD SUGAR. NO NEW ORDERS
[2020-04-08] MEDS: ATORVASTATIN 20 MG TAB PO SCH (21:21)
[2020-04-08] MEDS: INSULIN LANTUS (GLARGINE) 1 /0.01ml (100units/ml) SC SCH (21:21)
[2020-04-09] MEDS: InsuLIN REG 1unit/0.01ml Soln (100units/ml) SC SCH ×7 (00:09→23:33)
[2020-04-09] MEDS: ACCU-CHEK COMFORT CURVE STRIP VI SCH ×7 (00:09→23:33)
[2020-04-09 05:00] VITALS: BP 118/68
[2020-04-09] MEDS: PIPERACILLIN-TAZOB 2.25GM 50 ML IV SCH ×2 (06:02→11:57)
[2020-04-09 06:09] LABS: Hematocrit 22.6 % (41.0-53.0); Hemoglobin 7.9 g/dL (13.5-17.5)
[2020-04-09 06:32] LABS: Potassium 3.4 mmol/L (3.5-5.1)
[2020-04-09] MEDS: SUCRALFATE 1 GM/10 ML ORAL SUSP PO SCH ×4 (06:40→21:52)
[2020-04-09 06:42] LABS: Albumin 1.9 g/dL (3.4-5.0); BUN/Creatinine Ratio 18.7; Bilirubin, Total 0.6 mg/dL (0.2-1.0); Total Protein 5.6 g/dL (6.4-8.2)
[2020-04-09] MEDS: ALBUTEROL SULF HFA 90MCG INH 200DOSE IN SCH ×3 (07:05→22:26)
[2020-04-09] MEDS: BUDESONIDE (INHALATION) 180 MCG IH IN SCH ×2 (07:06→22:26)
--- NOTE | 2020-04-09 07:40 | NUR ---
Refusing Transfer Patient states he does not feel he needs to be transferred and won't go. Patient wants to go home.
[2020-04-09 09:00] VITALS: BP 118/71
--- NOTE | 2020-04-09 09:22 | NUR ---
Notified Dr. Conn Patient does not want to be transferred. Jacqueline CROWE CM is still awaiting authorization for a transfer.
--- NOTE | 2020-04-09 09:25 | NUR ---
Called [facility] and spoke with Courtney coordinator, stated that she has no got authorization from Chele CEJA, stated she is going to talk to her boss and see if they can get the authorization for the patient and will call me back.
--- NOTE | 2020-04-09 09:45 | NUR ---
Received a call from Courtney Dan who stated the patient doesn't want to be transferred an his family doesn't want him to be transferred. States she is going to inform Dr Freedman, express to her that I'm still waiting for the insurance company to give authorization for the the transfer.
[2020-04-09] MEDS: DexAMETHasone SOD PHOS 10MG/1ML VIAL INJ IV SCH (09:46)
[2020-04-09] MEDS: PANTOPRAZOLE 40 MG/10 ML VIAL INJ IV SCH ×2 (09:46→21:52)
[2020-04-09] MEDS: ZINC SULFATE 220mg CAP or TAB PO SCH (09:47)
[2020-04-09] MEDS: CHOLECALCIFEROL (VITD3) 2,000 UNIT CAP PO SCH (09:47)
[2020-04-09] MEDS: FUROSEMIDE 20 MG/2 ML VIAL IV SCH (09:47)
[2020-04-09] MEDS: ASCORBIC ACID 1,000 MG TAB PO SCH (09:48)
--- NOTE | 2020-04-09 10:52 | NUR ---
Received a call from Chele CEJA at [facility] [phone], stated the patient needs to change their insurance group since they live in [place], stated I will let the nurse know to inform the family to call the insurance company about changing. Stated to him that at this time the patient is refusing to be transferred. Informed him that if the patient changed his mind I will call him back.
--- NOTE | 2020-04-09 11:06 | NUR ---
Dr. Conn At bedside discussing POC with patient. Patient will be going home with home O2. No transfer to higher level of care.
--- NOTE | 2020-04-09 11:20 | NUR ---
FAMILY UPDATED ON POC.
--- NOTE | 2020-04-09 12:14 | NUR ---
Berg catheter dc'd Order to discontinue berg catheter. Berg dc'd with clean technique following deflation of balloon. Patient tolerated well with no complaints of pain. Continue care.
[2020-04-09] MEDS: SODIUM FERR GLUC 62.5MG/5ML 125 MG in SODIUM CHL 0.9% 100 ML IV SCH (12:46)
[2020-04-09 13:00] VITALS: BP 115/68
[2020-04-09] MEDS ORDERED: POTASSIUM CHL 20 Meq TABLET PO ONE (14:00)
--- NOTE | 2020-04-09 16:24 | NUR ---
Patient urinated 50 mL
[2020-04-09] MEDS: REMDESIVIR 100mg in NS 230ml DAILYx4DAYS (NO VENT) IV SCH (16:26)
[2020-04-09 17:00] VITALS: BP 114/61
[2020-04-09] MEDS: PIPERACILLIN-TAZOB 3.375GM 100 ML IV SCH ×2 (17:58→23:33)
[2020-04-09] MEDS: ATORVASTATIN 20 MG TAB PO SCH (21:52)
[2020-04-09 22:00] VITALS: BP 131/60
[2020-04-09 22:17] VITALS: BP 80/44
[2020-04-09] MEDS: INSULIN LANTUS (GLARGINE) 1 /0.01ml (100units/ml) SC SCH (23:32)
[2020-04-10] MEDS: ACCU-CHEK COMFORT CURVE STRIP VI SCH ×5 (04:16→20:35)
[2020-04-10] MEDS: InsuLIN REG 1unit/0.01ml Soln (100units/ml) SC SCH ×5 (04:21→20:39)
[2020-04-10 05:00] VITALS: BP 100/55
[2020-04-10] MEDS: PIPERACILLIN-TAZOB 3.375GM 100 ML IV SCH ×3 (05:27→17:59)
[2020-04-10 05:42] LABS: Hematocrit 24.7 % (41.0-53.0); Hemoglobin 8.5 g/dL (13.5-17.5)
[2020-04-10 05:57] LABS: Potassium 3.4 mmol/L (3.5-5.1)
[2020-04-10 06:09] LABS: BUN/Creatinine Ratio 17.2; Bilirubin, Total 0.6 mg/dL (0.2-1.0); Total Protein 5.8 g/dL (6.4-8.2)
[2020-04-10] MEDS: ALBUTEROL SULF HFA 90MCG INH 200DOSE IN SCH ×3 (06:10→23:53)
[2020-04-10] MEDS: BUDESONIDE (INHALATION) 180 MCG IH IN SCH ×2 (06:10→23:53)
[2020-04-10] MEDS: SUCRALFATE 1 GM/10 ML ORAL SUSP PO SCH ×4 (06:48→21:51)
--- NOTE | 2020-04-10 07:40 | NUR ---
OPENING NOTE ASSUMED CARE OF PT. ALERT AND ORIENTED. NO S/S OF SOB/DISTRESS NOTED. BED SET TO LOWEST POSITION/LOCKED. BEDSIDE RAILS UP X2. CALL LIGHT WITHIN REACH. INSTRUCTED PT TO CALL FOR ASSISTANCE. UPDATE ON POC. PT VERBALIZED UNDERSTANDING. WILL CONTINUE TO MONITOR Q1HR AND PRN FOR CHANGES.
[2020-04-10 09:00] VITALS: BP 124/77
[2020-04-10] MEDS ORDERED: POTASSIUM CHL 20 Meq TABLET PO ONE (09:30)
[2020-04-10] MEDS: DexAMETHasone SOD PHOS 10MG/1ML VIAL INJ IV SCH (10:02)
[2020-04-10] MEDS: PANTOPRAZOLE 40 MG/10 ML VIAL INJ IV SCH ×2 (10:04→21:50)
[2020-04-10] MEDS: FUROSEMIDE 20 MG/2 ML VIAL IV SCH (10:04)
[2020-04-10] MEDS: ZINC SULFATE 220mg CAP or TAB PO SCH (10:05)
[2020-04-10] MEDS: CHOLECALCIFEROL (VITD3) 2,000 UNIT CAP PO SCH (10:07)
[2020-04-10] MEDS: ASCORBIC ACID 1,000 MG TAB PO SCH (10:07)
[2020-04-10] MEDS: SODIUM FERR GLUC 62.5MG/5ML 125 MG in SODIUM CHL 0.9% 100 ML IV SCH (12:00)
[2020-04-10 13:00] VITALS: BP 126/81
[2020-04-10] MEDS ORDERED: SUCR1TAB22 PO (13:26)
[2020-04-10] MEDS ORDERED: ZINC220T6 PO (13:26)
[2020-04-10] MEDS ORDERED: METH4PAK PO (13:26)
[2020-04-10] MEDS ORDERED: ASCO10003 PO (13:26)
[2020-04-10] MEDS ORDERED: PANT40TA2 PO (13:26)
[2020-04-10] MEDS ORDERED: CHOL1CAP47 PO (13:26)
[2020-04-10] MEDS ORDERED: FER325T PO (13:26)
[2020-04-10] MEDS ORDERED: DOXY-286 PO (13:26)
[2020-04-10] MEDS ORDERED: BUDE2SUS3 IN (13:29)
--- NOTE | 2020-04-10 15:10 | NUR ---
Called Courtney coordinator at [facility] [phone] and ask about home O2 stated to fax the order to her
--- NOTE | 2020-04-10 15:21 | NUR ---
Faxed order to [facility] [phone] for the patient o2 at home
--- NOTE | 2020-04-10 16:20 | NUR ---
Per Courtney coordinator at [facility], Donna will be delivering the O2 for the patient here at the hospital and at home
--- NOTE | 2020-04-10 16:40 | NUR ---
HOME O2 SPOKE TO ISIAH PIERRE (MARCIAL) RE: HOME 02. PER MARANDA HOME O2 WILL BE DELIVERED TO BEDSIDE TONIGHT. NO ETA GIVEN.
--- NOTE | 2020-04-10 16:56 | NUR ---
BLOOD GLUCOSE PAGED HOSPITALIST RE: BG 443 MG/DL. INITIATED PROTOCOL. AWAITING CALL BACK. WILL CONTINUE TO MONITOR.
[2020-04-10 17:00] VITALS: BP 131/82
--- NOTE | 2020-04-10 17:29 | NUR ---
BLOOD GLUCOSE SPOKE TO ALIYAH WOLF. RE: PATIENT BLOOD GLUCOSE 443 MG/DL. PER HYDRAULIC BARKER OPERATOR GAVE LANTUS SCHEDULED AT 2200 AND 5 UNITS OF REGULAR. NEW ORDERS CARRIED OUT.
[2020-04-10] MEDS ORDERED: InsuLIN REG 1unit/0.01ml Soln (100units/ml) SC ONE (17:45)
[2020-04-10 17:48] VITALS: BP 131/82
[2020-04-10] MEDS: INSULIN LANTUS (GLARGINE) 1 /0.01ml (100units/ml) SC SCH (18:03)
--- NOTE | 2020-04-10 19:08 | NUR ---
[facility] SPOKE TO JOY FROM [facility] TO INQUIRE ETA FOR HOME 2. PER JOY PATIENT IS NOT IN THERE SYSTEM. WILL INFORM CHARGE NURSE.
--- NOTE | 2020-04-10 19:11 | NUR ---
[employer] CALLED KORY (COORDINATOR) FROM [employer] . NO ANSWER. WILL INFORM CHARGE.
--- NOTE | 2020-04-10 19:14 | NUR ---
HOME O2 SPOKE TO ALIYAH WOLF. RE: CURRENT HOME O2 SITUATION. PER LUCIANO HOLD D/C AND CONTINUE CARE.
--- NOTE | 2020-04-10 19:19 | NUR ---
FINA ([phone]) WAS INFORMED ABOUT DISCHARGE HOLD.
--- NOTE | 2020-04-10 20:39 | NUR ---
WALDEMAR HOSPITALIST BLOOD SUGAR 413 GAVE 15 UNITS OF REGULAR INSULIN PER SLIDING SCALE. PATIENT IS ASYMPTOMATIC. PATIENT HAS HIGH BLOOD SUGARS PREVIOUSLY RECORDED. PATIENT ATE 100% DINNER TRAY.
--- NOTE | 2020-04-10 21:25 | NUR ---
HOSPITALIST CALL BACK WITH ORDERS TO FOLLOW PROTOCOL PER SLIDING SCALE FOR HIGH BLOOD SUGAR.
[2020-04-10] MEDS: ATORVASTATIN 20 MG TAB PO SCH (21:51)
[2020-04-10 22:00] VITALS: BP 118/68
[2020-04-11] MEDS: PIPERACILLIN-TAZOB 3.375GM 100 ML IV SCH ×3 (00:30→12:00)
[2020-04-11] MEDS: ACCU-CHEK COMFORT CURVE STRIP VI SCH ×4 (00:30→14:08)
[2020-04-11] MEDS: InsuLIN REG 1unit/0.01ml Soln (100units/ml) SC SCH ×4 (00:32→14:10)
[2020-04-11 05:55] VITALS: BP 108/63
[2020-04-11] MEDS: SUCRALFATE 1 GM/10 ML ORAL SUSP PO SCH ×2 (06:11→09:44)
[2020-04-11 06:14] LABS: Potassium 3.4 mmol/L (3.5-5.1)
[2020-04-11 06:22] LABS: BUN/Creatinine Ratio 14.8; Bilirubin, Total 0.5 mg/dL (0.2-1.0); Total Protein 5.8 g/dL (6.4-8.2)
[2020-04-11] MEDS: ALBUTEROL SULF HFA 90MCG INH 200DOSE IN SCH ×2 (07:14→15:15)
[2020-04-11] MEDS: BUDESONIDE (INHALATION) 180 MCG IH IN SCH (07:14)
--- NOTE | 2020-04-11 07:45 | NUR ---
Opening Shift Note Assumed care of patient, awake and alert. No S/S of distress/SOB or pain. Oxygen nasal cannula 1 L sat 95%.Discharge today once home and portable oxygen delivered. Instructed on POC and to call for assist PRN, will continue to monitor for changes Q1hr and PRN.
[2020-04-11 09:00] VITALS: BP 134/66
[2020-04-11] MEDS: FUROSEMIDE 20 MG/2 ML VIAL IV SCH (09:42)
[2020-04-11] MEDS: CHOLECALCIFEROL (VITD3) 2,000 UNIT CAP PO SCH (09:43)
[2020-04-11] MEDS: PANTOPRAZOLE 40 MG/10 ML VIAL INJ IV SCH (09:43)
[2020-04-11] MEDS: ASCORBIC ACID 1,000 MG TAB PO SCH (09:43)
[2020-04-11] MEDS: ZINC SULFATE 220mg CAP or TAB PO SCH (09:43)
--- NOTE | 2020-04-11 10:55 | NUR ---
update home oxygen patient paras will make the $90 copay for oxygen and then it will be delivered to the hospital and their residence.
[2020-04-11] MEDS: SODIUM FERR GLUC 62.5MG/5ML 125 MG in SODIUM CHL 0.9% 100 ML IV SCH (12:00)
[2020-04-11] MEDS ORDERED: POTASSIUM CHL 20 Meq TABLET PO ONE (12:30)
[2020-04-11 13:00] VITALS: BP 115/64
--- NOTE | 2020-04-11 13:21 | NUR ---
IV D/C'D ASEPTIC TECHNIQUE USED. CATHETER INTACT, PRESSURE DRESSING APPLIED. PATIENT TOLERATED WELL.
--- NOTE | 2020-04-11 14:06 | NUR ---
OXYGEN BEDSIDE UPDATED PATIENTS HE IS READY FOR DISCHARGE. WILL BRING CLOTHES FOR THE PATIENT.
--- NOTE | 2020-04-11 14:30 | NUR ---
PAGED EVS AND SECURITY FOR DISCHARGE
--- NOTE | 2020-04-11 15:30 | NUR ---
RE-PAGED EVS AND SECURITY;SHOE SHANKER UNAVAILABLE PUT OUT A CALL FOR STAFF TO ASSIST WITH DISCHARGE TO THE LOBBY
--- NOTE | 2020-04-11 16:15 | NUR ---
Discharge instructions given as ordered. Encourage to follow up with PMD as instructed. All questions and concerns addressed. Patient verbalized understanding. IV removed with catheter intact, pressure dressing applied. Telemetry unit returned to ICU. Patient taken to vehicle via wheelchair with all personal belongings, and new medications accompanied by volunteer desk staff ; family member waiting in lobby. No distress noted at time of departure.
== END 2020-04-11 16:10 | disposition home or self-care (01) | DRG 871 ==
LOC: EDBD 11:55 → ER 11:55 → TELE 11:56 → TELE-EAST 04-03 11:15 → DOU IN ICU 04-03 14:08 → TELE-CENTR 04-04 16:06 → TELE-EAST 04-04 16:58
PROVIDERS: ADMIT Nurse Practitioner Acute Care; ATTEND Internal Medicine
PROC: 30233N1 Transfusion of Nonautologous Red Blood Cells into Peripheral Vein, Percutaneous Approach (ICD-10-PCS; 2020-04-02)
PROC: XW13325 Transfusion of Convalescent Plasma (Nonautologous) into Peripheral Vein, Percutaneous Approach, New Technology Group 5 (ICD-10-PCS; 2020-04-03)
PROC: 4A023N7 Measurement of Cardiac Sampling and Pressure, Left Heart, Percutaneous Approach (ICD-10-PCS; principal; 2020-04-05)
PROC: B211YZZ Fluoroscopy of Multiple Coronary Arteries using Other Contrast (ICD-10-PCS; 2020-04-05)
PROC: B215YZZ Fluoroscopy of Left Heart using Other Contrast (ICD-10-PCS; 2020-04-05)
PROC: XW033E5 Introduction of Remdesivir Anti-infective into Peripheral Vein, Percutaneous Approach, New Technology Group 5 (ICD-10-PCS; 2020-04-09)
DX: A41.89 Other specified sepsis (principal); E43 Unspecified severe protein-calorie malnutrition; I21.A1 Myocardial infarction type 2; I50.43 Acute on chronic combined systolic (congestive) and diastolic (congestive) heart failure; J12.89 Other viral pneumonia; J96.01 Acute respiratory failure with hypoxia; U07.1 COVID-19; N17.0 Acute kidney failure with tubular necrosis; E87.1 Hypo-osmolality and hyponatremia; E87.2 Acidosis; I13.0 Hypertensive heart and chronic kidney disease with heart failure and stage 1 through stage 4 chronic kidney disease, or unspecified chronic kidney disease; J44.0 Chronic obstructive pulmonary disease with (acute) lower respiratory infection; D62 Acute posthemorrhagic anemia; R65.20 Severe sepsis without septic shock; D63.1 Anemia in chronic kidney disease; E11.22 Type 2 diabetes mellitus with diabetic chronic kidney disease; E11.65 Type 2 diabetes mellitus with hyperglycemia; E55.9 Vitamin D deficiency, unspecified; E66.9 Obesity, unspecified; N18.30 Chronic kidney disease, stage 3 unspecified; E78.5 Hyperlipidemia, unspecified; F17.200 Nicotine dependence, unspecified, uncomplicated; I25.10 Atherosclerotic heart disease of native coronary artery without angina pectoris; I25.2 Old myocardial infarction; Z79.84 Long term (current) use of oral hypoglycemic drugs; Z79.899 Other long term (current) drug therapy; Z82.49 Family history of ischemic heart disease and other diseases of the circulatory system; Z68.32 Body mass index [BMI] 32.0-32.9, adult
CPT/HCPCS: 36415; 36600; 71045; 76775; 80048; 80053; 80061; 81001; 82010; 82270; 82306; 82570; 82728; 82805; 82962; 83036; 83540; 83550; 83605; 83615; 83735; 83880; 83930; 83935; 83970; 84100; 84156; 84300; 84484; 84550; 85014; 85018; 85025; 85610; 85730; 86141; 86850; 86900; 86901; 86920; 87040; 87081; 87426; 87804; 93005; 93926; 93970; 94640; 97110; 97116; 97530; 99152; 99291; C9113; G0378; J0696; J1100; J1815; J2250; J2543; J3490; Q9967